=== PATIENT | female | born 1955 | race Caucasian/White ===

== ENCOUNTER 2016-11-12 09:22 | Day surgery (SDC) | payer OTHER ==
[~2016-11-12] VITALS: Ht 167.6 cm; Wt 56.2 kg
[~2016-11-12 09:22] MED LIST: CLARITIN,ALAVAR10 MG PO; EPINEPHRIN0.15 MG/0. IM; FOSAMAX70 MG PO; GABAPENTIN600 MG PO; HYDROCODON-ACE1 EAC7 PO; LAMOTRIGINE300 MG PO; LATUDA40 MG PO; LATUDA80 MG PO; LYRICA75 MG PO; PRILOSEC40 MG PO; REVIA50 MG PO; TRAZODONE HCL100 MG PO
[2016-11-12 10:42] LABS: AMPHETAMINES QUANT VALUE 0 NG/ML; BARBITUATES QUANT VALUE 0 NG/ML; BENZODIAZEPINES QUANT VALUE 0 NG/ML; BENZODIAZEPINES, URINE SCREEN Negative (200 ng/mL); MARIJUANA QUANT VALUE 0 NG/ML; OPIATES QUANTITATIVE VALUE 0 NG/ML; PHENCYCLIDINE QUANT VALUE 0 NG/ML
== END 2016-11-12 11:05 | disposition home or self-care (01) ==
LOC: PAIN 09:22 → SDC 09:45 → PAIN 09:45
PROVIDERS: Anesthesiology Pain Medicine
DX: M47.814 Spondylosis without myelopathy or radiculopathy, thoracic region (principal); F41.9 Anxiety disorder, unspecified; F10.20 Alcohol dependence, uncomplicated; G89.29 Other chronic pain; F17.200 Nicotine dependence, unspecified, uncomplicated; F19.10 Other psychoactive substance abuse, uncomplicated; F31.9 Bipolar disorder, unspecified; M81.0 Age-related osteoporosis without current pathological fracture; Z91.013 Allergy to seafood; Z88.0 Allergy status to penicillin; Z88.8 Allergy status to other drugs, medicaments and biological substances
CPT/HCPCS: 80306 90; J1030; J2250; J3010; S0020

== ENCOUNTER 2016-11-19 09:30 | Day surgery (SDC) | payer OTHER ==
[~2016-11-19] VITALS: Ht 167.6 cm; Wt 56.2 kg
== END 2016-11-19 11:24 | disposition home or self-care (01) ==
LOC: PAIN 09:30 → SDC 09:45 → PAIN 09:45
DX: M47.814 Spondylosis without myelopathy or radiculopathy, thoracic region (principal); M54.9 Dorsalgia, unspecified; G89.29 Other chronic pain; M51.44 Schmorl's nodes, thoracic region; F41.9 Anxiety disorder, unspecified; M81.0 Age-related osteoporosis without current pathological fracture; F17.210 Nicotine dependence, cigarettes, uncomplicated; F10.21 Alcohol dependence, in remission; Z79.891 Long term (current) use of opiate analgesic; Z79.899 Other long term (current) drug therapy; Z88.0 Allergy status to penicillin
CPT/HCPCS: J1030; J2250; J3010; S0020